=== PATIENT | male | born 1965 | race Caucasian/White ===

== ENCOUNTER 2020-07-06 07:00 | Emergency (ER) | payer SELFPAY ==
--- NOTE | 2020-07-06 07:31 | CT ---
HEAD CT WITHOUT CONTRAST: HISTORY: Stroke protocol. Left-sided weakness. Slurred speech. COMPARISON: None. FINDINGS: Hemorrhage: Large intraparenchymal hematoma centered in the right temporal lobe and right deep hernandez m atter structures. Hematoma measures 3.7 x 4.0 cm. Associated peripheral edema. There is mass effect and sulcal effacement involving the right cerebrum. There is extension of blood into the ventricular system. Blood is noted in the body of both lateral ventricles, occipital horns of both lateral ventricles as well as the 3rd and 4th ventricle. No evidence of obstructing hydrocephalus. No midline shift. Basilar cisterns are patent. Brain parenchyma: Cortical hernandez-white matter differentiation is preserved. No mass effect or midline shift. Basilar cisterns are patent. Ventricular system: Ventricles and sulci are patent and symmetric. Calvarium: Intact. Sinuses and mastoid air cells: Adequate aeration. IMPRESSION: 1. Limited evaluation due to motion degradation. 2. Large intraparenchymal hematoma involving the right temporal lobe and right deep hernandez matter struc tures. Associated edema as well as mass effect and sulcal effacement. No significant midline shift. 3. Decompression of intraparenchymal hemorrhage into the ventricular system. No evidence of obstructi ve hydrocephalus. Results of the study discussed with Dr. Kaufman 07/06/2020 at 7:30 AM. Code CR Transcribed Date/Time: 07/06/2020 7:35 AM
[2020-07-06 07:32] LABS: #Basophils 0.1 thou/uL (0.0-0.2); #Eosinphils 0.4 thou/uL (0.0-0.7); #Monocytes 1.2 thou/uL (0.11-0.59); #Neutrophils 6.9 thou/uL (1.40-6.50); %Basophils 1.4 % (0.0-1.0); %Lymphocytes 18.8 % (21.0-51.0); %Monocytes 11.2 % (0.0-10.0); %Neutrophils 64.6 % (42.0-75.0); Eosinophils 10 % (0-10); Hemoglobin 16.7 g/dL (14.0-18.0); Lymphocytes 12 % (21-51); MDiff Complete? YES; Mean Corpuscular HGB CONC 31.8 g/dL (32.0-36.0); Mean Corpuscular Hemoglobin 28.6 pg (27.0-31.0); Mean Corpuscular Volume 89.7 fL (78.0-98.0); Mean Platelet Volume 7.5 fL (7.4-10.4); Monocytes 16 % (0-10); Neutrophil 60 % (42-75); Platelet Count 126 thou/uL (130-400); Platelet Morphology Comment Appears Decreased; RBC Distribution Width 14.7 % (11.5-14.5); RBC Morphology Normal; Reactive Lymphocytes 2 % (0-10); Red Blood Cell (RBC) Count 5.83 mill/uL (4.70-6.10); White Blood Cell (WBC) Count 10.7 thou/uL (4.8-10.8)
[2020-07-06 07:34] LABS: INR-International Normal Ratio 0.9; PTT 24.5 sec (22.9-36.1); Prothrombin Time 12.7 sec (12.0-14.7)
[2020-07-06 07:41] LABS: ALT (SGPT) 27 U/L (8-55); AST (SGOT) 23 U/L (5-34); Albumin 4.2 g/dL (3.5-5.0); Alkaline Phosphatase 67 U/L (40-110); Anion Gap 16 mmol/L (10-20); BUN (Urea Nitrogen) 16 mg/dL (8.4-25.7); Bilirubin, Total 0.6 mg/dL (0.2-1.2); Calc. Creatinine Clearance 0 mL/min (70-130); Calcium 8.9 mg/dL (7.8-10.44); Carbon Dioxide 23 mmol/L (22-29); Chloride 103 mmol/L (98-107); Estimated GFR-MDRD Greater than 90; Globulin 4.2 g/dL (2.4-3.5); Glucose 165 mg/dL (70-105); Potassium 3.5 mmol/L (3.5-5.1); Protein, Total 8.4 g/dL (6.0-8.3); Sodium 138 mmol/L (136-145)
[2020-07-06] MEDS ORDERED: Labetalol HCl 100 MG/20 ML VIAL ONE (07:45)
[2020-07-06] MEDS ORDERED: niCARdipine 20MG In NaCl 20 MG/200 ML BAG ONE (07:49)
== END 2020-07-06 07:50 | disposition short-term general hospital (02) ==
LOC: NAV ERS 07:00
DX: I61.9 Nontraumatic intracerebral hemorrhage, unspecified (principal); R47.81 Slurred speech; R29.810 Facial weakness; I10 Essential (primary) hypertension; E78.5 Hyperlipidemia, unspecified; E11.9 Type 2 diabetes mellitus without complications; Z87.891 Personal history of nicotine dependence; Z79.899 Other long term (current) drug therapy
CPT/HCPCS: 36415; 70450; 80053; 84484; 85025; 85610; 85730; 93005; 96374; 96375